=== PATIENT | male | born 1980 | race Two or more races ===

== ENCOUNTER 2018-11-26 11:09 | Emergency (ER) | payer BC, OTHER ==
[~2018-11-26] VITALS: Ht 172.7 cm; Wt 94.3 kg
[2018-11-26 14:00] VITALS: BP 130/75
[2018-11-26] MEDS ORDERED: KETOROLAC TROMETH 60MG/2ML VIAL IM ONE (15:15)
== END 2018-11-26 16:06 | disposition home or self-care (01) ==
LOC: ER 11:09
DX: M51.17 Intervertebral disc disorders with radiculopathy, lumbosacral region (principal)
CPT/HCPCS: 72100; 96372; 99283; J1885

== ENCOUNTER 2020-01-03 08:49 | Emergency (ER) | payer BC ==
[~2020-01-03] VITALS: Ht 172.7 cm; Wt 95.3 kg
[2020-01-03 09:42] VITALS: BP 152/99
[2020-01-03] MEDS ORDERED: KETOROLAC TROMETH 60MG/2ML VIAL IM ONE (10:15)
[2020-01-03] MEDS ORDERED: METHOCARBAMOL 500 MG TAB PO ONE (10:15)
== END 2020-01-03 10:42 | disposition home or self-care (01) ==
LOC: ER 08:49
DX: M54.5 Low back pain (principal)
CPT/HCPCS: 96372; 99283; J1885